=== PATIENT | male | born 2000 | race Caucasian/White ===

== ENCOUNTER → 2024-05-08 | Outpatient (CLI) | payer OTHER, SELFPAY ==
--- NOTE | 2024-05-08 10:17 | RAD_ITS ---
INDICATION: LEFT ANKLE ARTHRITIS EXAMINATION/TECHNIQUE: X-RAY - LEFT XR Ankle 2 Views 2 VIEWS COMPARISON: FINDINGS: SOFT TISSUES: Slightly lateral soft tissue swelling . No radiopaque foreign body. BONES/JOINTS: No acute fracture or subluxation.. Normal alignment. Preservation of the joint space.. No sclerotic or destructive changes observed. RAD/Ankle 2 Views IMPRESSION: Slight lateral soft tissue swelling at the ankle. Electronically Signed: Arnav Toribio DO at 19:11 EDT ,
== END | disposition home or self-care (01) ==
PROVIDERS: Referring Provider Chiropractor; Visit Provider Chiropractor
DX: M13.872 Other specified arthritis, left ankle and foot (principal)
CPT/HCPCS: 73600